=== PATIENT | female | born 1990 | race Caucasian/White ===

== ENCOUNTER 2024-10-18 00:02 | Day surgery (SDC) | payer OTHER, SELFPAY ==
--- NOTE | 2024-10-12 09:15 | PC.NURSE ---
Report to the Outpatient Waiting Room, entrance under the green pavilion located off [facility], at time _0900AM on date _10/18/24 . Planned Procedure Time: _1100AM .? Time changes happen often and if your time is changed the preop area will call you the afternoon before. - You and your visitor will be asked to self-screen and do not enter if you have any COVID symptoms. Please call surgeon if you need to reschedule. - A mask is optional within the hospital at this time. Patients may have clear liquids (water, carbonated beverages, clear teas, apple juice) until 3 hours prior to surgery with a maximum of 20 ounces. - No food from midnight until time of surgery and no smoking, or chewing tobacco (or any form of nicotine). No chewing gum, candy or mints. Take only the following medications with a SIP of water on the morning of surgery: _BUPROPRION, _ARIPIPRAZOLE DO NOT STOP ANY OF YOUR OTHER PRESCRIPTION MEDICATIONS PRIOR TO SURGERY EXCEPT THE FOLLOWING Hold all vitamins and supplements for 3 days per anesthesiologist. Medications to discontinue per physician FOLIC ACID Date to take last dose___10/15/24 Please no make-up, nail kazakh, hairspray, perfume, deodorant, or body powder the day of surgery.? No jewelry (including any body piercings) or valuables the day of surgery, leave them at home.? Please take a shower or bath the night before, or the morning of, surgery with an antibacterial soap.? Wear comfortable, loose fitting clothing.? - Jewelry must be removed prior to entering the operating room.? Rings and piercings that are not removed may be cut off. - The hospital will not accept responsibility for valuables.? - Please leave all valuables, including medications, at home the day of surgery. If you are going home after surgery, a licensed lifter driver must drive you home.? BRING AN OVERNIGHT BAG FOR ADMIT TO HOSPITAL POST OP - NO public transportation without another adult if you receive anesthesia. - We recommend that an adult stay with you for 24 hours following discharge. - We also recommend that you do not drive, make important decision, drink alcoholic beverages, or take any drugs that were not prescribed by your health care provider for at least 24 hours after your discharge time. Follow any additional instructions given to you from your surgeon. Telephone instructions given to BENEDICT and asked if any additional questions and then verbalized understanding. Patient advised to call surgeon office or pre surgery nurse liaison [phone] if any additional questions.
[2024-10-18] VITALS (13 sets, daily range): BP systolic 95–127; BP diastolic 43–73; PULSE 60–97; RESP 12–20; TEMP 36.4–37.3; O2SAT 97–100
--- OUTSIDE RECORDS SUMMARY | 2024-10-18 00:04 | XMS_ITS | Referral Summary ---
Author Organization [facility] Address [facility] [place] [address] Care Team Providers Care Corporate Tutor Name Role Phone Paula Ames Primary Care Provider + Girish Deras MD Unavailable [phone] Encounters Date Type Department Care Team Description 07/27/2024 10:45 AM CDT Office Visit [facility] Surgery [facility] [address] [place] [address] Michelle Eubanks MD S/P breast reconstruction (Primary Dx) from Last 3 Months Allergies Active Allergy Reactions Criticality Noted Date Comments Duloxetine Hcl Other (See comments) Low 09/03/2022 Side effects and trouble coming off of it. Tried and cannot take, I am not allergic Escitalopram Other (See comments) Low 09/12/[address] Tried and cannot take, I am not allergic Fluoxetine Other (See comments) Low 08/04/2021 Decre[address] Tried and cannot take, I am not allergic Phentermine Palpitations Low 12/31/2022 Medications buPROPion XL (WELLBUTRIN XL) 300 mg 24 hr tabletIndications :Anxiety with Depression Take 1 tablet (300 mg total) by mouth every morning 150 mg and 300 mg tablet to equal 450 mg. 07/18/19 23 Active levonorgestrel (MIRENA INTRAUTERINE)Feli cations: contraceptive 1 applicator by intrauterine route once Active buPROPion XL (WELLBUTRIN XL) 150 mg 24 hr tabletIndications :Anxiety with Depression Take 1 tablet (150 mg total) by mouth every morning 150 mg and 300 mg tablet to equal 450 mg. Active omeprazole 20 mg tablet,delayed release (DR/EC)Indication s:Treatment of Non-Bleeding Gastric Disorder,acid reflux Take 1 tablet (20 mg total) by mouth as needed Active cetirizine (ZyrTEC) 10 mg tabletIndications :Allergic Rhinitis Take 1 tablet (10 mg total) by mouth as needed for allergies Active melatonin 10 mg tabletIndications :sleep Take 1 tablet (10 mg total) by mouth nightly Active folic acid (FOLVITE) 1 mg tabletIndications :Folate Deficiency Take 1 tablet (1,000 mcg total) by mouth nightly Active hydrOXYzine (ATARAX) 50 mg tabletIndications :anxiety Take 1 tablet (50 mg total) by mouth every 6 (six) hours as needed for anxiety 01/06/20 24 Active valACYclovir (VALTREX) 500 mg tabletIndications :Prophylaxis, Medical,HSV Take 1 tablet (500 mg total) by mouth nightly Active ascorbic acid (VITAMIN C ORAL)Indications: supplement Take 1 tablet by mouth nightly Active cholecalciferol, vitamin D3, (VITAMIN D3 ORAL)Indications: supplement Take 1 tablet by mouth nightly Active ferrous sulfate (IRON ORAL)Indications: supplement Take 1 tablet by mouth nightly Active ARIPiprazole (ABILIFY) 30 mg tabletIndications :Depression Treatment Adjunct Take 1 tablet (30 mg total) by mouth nightly 02/02/20 24 Active Active Problems Problem Noted Date Diagnosed Date Hx of breast reconstruction 05/30/2024 Status post breast reconstruction 02/04/2024 Exposed breast implant 08/27/2023 Infection of breast tissue bricklayer paving brick, initial enc ounter 08/27/2023 Necrosis of flap 06/21/2023 BRCA gene mutation positive 04/01/2023 BRCA positive 08/11/2022 Sprain of shoulder 03/22/2013 Immunizations Immunization Administration Dates Next Due DTP 10/30/1994, 1,01/24/1990,11/12,1989 DTaP, Unspecified 10/26/2017 Hep B, Adolescent or Pediatric 08/27/1999,1998,03/05/1999 HiB 08/19/1990 Influenza, Quadrivalent, Spl it, Preservative Free, Intramuscular 03/03/2019,03/09/2018,02/24/2017,02/23,02/25/2015 Influenza, Unspecified 03/27/2021,03/04/2020, MMR 10/30/1994,08/19/1990 OPV 10/30/1994, 1,1989,08/23 OPV, Unspecified 10/30/1994, 1,1989,08/23 Td, adsorbed 09/27/2003 Tdap 10/26/2017,10/06/2016 Social History Tobacco Use Types Packs/Day Years Used Date Smoking Tobacco: Former Vaping 2 023 - 06/2023 Passive Smoke Exposure: Never Smokeless Tobacco: Never Tobacco Cessation:Counseling Given: Not Answered Alcohol Use Standard Drinks/Week Comments Not Currently 0 (1 standard drink = 0.6 oz pur e alcohol) AUDIT-C Answer Date Recorded Q1: How often do you have a drink containing alcohol? Never 05/31/2024 Q2: How many drinks containi ng alcohol do you have on a typical day when you are drinking? Patient does not drink Q3: How often do you have si x or more drinks on one occasion? Never 05/31/2024 Personal Safety Answer Date Recorded Have you ever been in or are you currently in a harmful physical or emotional relationship or is someone making you feel afraid or unsafe? 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 Gender Identity Female 07/30/2022 10:57 AM CDT Sexual Orientation Not on file Last Filed Vital Signs Vital Sign Reading Time Taken Comments Blood Pressure 114/61 06/28/2024 11:30 AM PROCESS MACHINE OPERATOR Pulse 75 06/28/2024 11:30 AM PROCESS MACHINE OPERATOR Temperature 36.9 C (98.4 F) 06/28/2024 11:30 AM PROCESS MACHINE OPERATOR Respiratory Rate 10 06/28/2024 11:30 AM PROCESS MACHINE OPERATOR Oxygen Saturation 96% 06/28/2024 11:30 AM PROCESS MACHINE OPERATOR Inhaled Oxygen Concentration - - Weight 115.7 kg (255 lb) 06/28/2024 7:16 AM PROCESS MACHINE OPERATOR Height 167.6 cm (5' 5.98) 06/28/2024 7:16 AM CS T Body Mass Index 41.18 06/28/2024 7:16 AM PROCESS MACHINE OPERATOR Plan of Treatment Not on file Medical Devices Implanted Type Area Insole Channeler Device Identifier Shelf Expiration Date Model / Serial / Lot [place] Mesh Surgical P4hb Synthetic [place] Galaflex Lite 17cm Soft Tissue Repair [id number] - [id number] Implanted:Qty: 1 on 06/02/2023 by Michelle Eubanks MD at [facility] Breast Right: Breast [employer]ile 03/16/2024 [id number] / / [id number] Description:IMPLANT PAUSE PE RFORMED Te[employer] Inc Mesh Surg [place] 3d 21x7.5cm Soft Tissue Scaffold [facility] [facility] [employer] [id number] - [id number] Implanted:Qty: 1 on 06/02/2023 by Michelle Eubanks MD at [facility] Breast Bilateral: Breast TEPHA INC 04/08/2026 [id number] / / [id number] Rti Surgical Inc Graft Tissue Tailored Dermis Large 1mm Thick Cortiva 10.2x21.1cm [id number] - [id number] - [id number] Implanted:Qty: 1 on 06/02/2023 by Michelle Eubanks MD at [facility] Breast Right: Breast Rti [employer] Inc 09/14/2027 [id number] / [id number] / [id number] Rti [employer] Inc Graft Tissue Tailored Dermis Large 1mm Thick Cortiva 10.2x21.1cm Kgf802 - [id number] - [id number] Implanted:Qty: 1 on 06/02/2023 by Michelle Eubanks MD at [facility] Breast Left: Breast [employer] Inc 09/14/2027 [id number] / [id number] / [id number] Chula Randy Mesh Surgical P4hb Synthetic [place] Galaflex Lite 17cm Soft Tissue Repair [id number] - [id number] Implanted:Qty: 1 on 06/02/2023 by Michelle Eubanks MD at [facility] Breast Left: Breast [employer] 03/16/2024 [id number] / / [id number] Description:IMPLANT PAUSE PE RFORMED Iud Uterus [employer] Inc Graft Tissue Perf Cortiva 27s49cv [id number] - [id number] Implanted:Qty: 1 on 02/22/2024 at [facility] Left: Breast Rti [employer] Inc 04/19/2025 [id number] / [id number] / [id number] Sientra Inc Implant Breast Round Moderate Profile Smooth Opus Luxe 650cc Gel [id number] - [id number] Implanted:Qty: 1 on 06/28/2024 at [facility] Left: Breast Sientra Inc 12/02/2025 [id number] P / [id number] / Sient[employer] Inc Implant Breast Round Moderate Profile Smooth Opus Luxe 650cc Gel [id number] - [id number] Implanted:Qty: 1 on 06/28/2024 at [facility] Right: Breast S[employer] Inc 08/25/2024 [id number] P / [id number] / Explanted Type Area Insole Channeler Device Identifier Shelf Expiration Date Model / Serial / Lot Sientra Inc Implant Breast Round Moderate Profile Smooth Opus Luxe 650cc Gel [id number] - [id number] - [id number] Implanted:Qty : 1 on 06/02/2023 by Michelle Eubanks MD at [facility] Explanted:Qty : 1 on 08/28/2023 by Michelle Eubanks MD at [facility] Breast Left: Breast S[employer] Inc [id number] 10/21/2025 61381-596 MP / [id number] / Description:IMPLANT PAUSE PE RFORMED Discarded to waste [employer] Implant Breast Round Moderate Profile Smooth Opus Luxe 650cc Gel 97243-195mm - [id number] - [id number] Implanted:Qty : 1 on 06/02/2023 by Michelle Eubanks MD at [facility] Explanted:Qty : 1 on 06/28/2024 by Michelle Eubanks MD at [facility] Breast Right: Breast Sient[employer] Inc [id number] 09/03/2023 [id number] / [id number] / Description:IMPLANT PAUSE PE RFORMED [employer] Implant Mammary Josue Te Smooth 616z-[id number]-73-[id number] With Fourte 913a-[id number]-40-[id number] - [id number] Implanted:Qty : 1 on 02/22/2024 at [facility] Explanted:Qty : 1 on 06/28/2024 by Michelle Eubanks MD at [facility] Left: Breast [employer] 2028 [id number] / [id number] / Procedures Procedure Name Priority Date/Time Associated Diagnosis Comments DIAGNOSTIC MAMMOGRAM BILATERAL W NIMA Schedule Routine, Read Routine (OP Routine) 08/11/2022 10:19 AM CDT BRCA gene mutation positive from Last 3 Months or Most Recently Relevant to Health Maintenance Results * Diagnostic Mammogram Bilateral W Nima (08/11/2022 10:19 AM CDT) Anatomical Region Laterality Modality Breast Bilateral Mammography 08/11/2022 10:3 3 AM CDT Impressions 08/11/2022 1:19 PM CDT 1. Effacement of the focal asymmetry in the lower inner left breast on spot compression views today. Finding is stable in appearance since 2021 and is consistent with overlapping fibroglandular tissue. 2. Effacement of the asymmetry seen on the lateral views in the upper right breast on spot compression views today. Finding is stable in appearance since 2021 and is consistent with overlapping fibroglandular tissue. OVERALL FINAL ASSESSMENT: BI-RADS Category 1: Negative. RECOMMENDATION: Continued clinical follow-up is recommended. Unless earlier screening is clinically indicated, recommend annual screening mammography beginning at 40 years of age. Dictated by: Noemí Miller M.D. The radiology attending physician has personally reviewed this study, and had reviewed and/or edited this written report and agrees with it. Electronically signed by: Mireya Masters M.D. Narrative 08/11/2022 1:19 PM CDT EXAMINATION: BILATERAL DIGITAL DIAGNOSTIC MAMMOGRAM INCLUDING CAD AND BILATERAL DIGITAL BREAST TOMOSYNTHESIS HISTORY: 32-year-old woman presents for further evaluation of focal asymmetry in the left breast and asymmetry in the right breast seen on the MLO view. COMPARISON: 06/16/2022, 08/27/2021 TECHNIQUE: Full field digital mammographic views of BOTH breasts were performed, including computer aided detection (CAD) and BILATERAL digital breast tomosynthesis (DBT). BREAST PARENCHYMAL COMPOSITION: There are scattered areas of fibroglandular density. MAMMOGRAM FINDINGS: Left breast: The focal asymmetry in the lower inner left breast partially effaces on spot compression views today and is stable in appearance since 2021. Right breast: The asymmetry seen on the lateral views in the upper right breast partially effaces on spot compression views today and is stable in appearance since 2021. Procedure Note Mireya Masters MD - 08/11/2022 EXAMINATION: BILATERAL DIGITAL DIAGNOSTIC MAMMOGRAM INCLUDING CAD AND BILATERAL DIGITAL BREAST TOMOSYNTHESIS HISTORY: 32-year-old woman presents for further evaluation of focal asymmetry in the left breast and asymmetry in the right breast seen on the MLO view. COMPARISON: 06/16/2022, 08/27/2021 TECHNIQUE: Full field digital mammographic views of BOTH breasts were performed, including computer aided detection (CAD) and BILATERAL digital breast tomosynthesis (DBT). BREAST PARENCHYMAL COMPOSITION: There are scattered areas of fibroglandular density. MAMMOGRAM FINDINGS: Left breast: The focal asymmetry in the lower inner left breast partially effaces on spot compression views today and is stable in appearance since 2021. Right breast: The asymmetry seen on the lateral views in the upper right breast partially effaces on spot compression views today and is stable in appearance since 2021. IMPRESSION: 1. Effacement of the focal asymmetry in the lower inner left breast on spot compression views today. Finding is stable in appearance since 2021 and is consistent with overlapping fibroglandular tissue. 2. Effacement of the asymmetry seen on the lateral views in the upper right breast on spot compression views today. Finding is stable in appearance since 2021 and is consistent with overlapping fibroglandular tissue. OVERALL FINAL ASSESSMENT: BI-RADS Category 1: Negative. RECOMMENDATION: Continued clinical follow-up is recommended. Unless earlier screening is clinically indicated, recommend annual screening mammography beginning at 40 years of age. Dictated by: Noemí Miller M.D. The radiology attending physician has personally reviewed this study, and had reviewed and/or edited this written report and agrees with it. Electronically signed by: Mireya Masters M.D. Nirmala Lino MD IMG MAMMO PROCEDURES Fi nal Result from Last 3 Months or Most Recently Relevant to Health Maintenance Insurance [facility] H[facility]/PPO Address: [place] [address] [facility] HMO/PPO Address: [address] Fast Orientation OOS Advance Directives For more information, please contact: [phone] * Full Code (Latest Code Status on File) Date Activated Date Inactivated Comments 08/27/2023 5:44 PM 08/29/2023 12:54 AM Care Teams Corporate Tutor Relationship Specialty Start Date End Date Paula Ames PA [address] [place] [address] PCP - General Physician Swimming Pool 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
--- OUTSIDE RECORDS SUMMARY | 2024-10-18 00:04 | XMS_ITS | Clinical Summary ---
Author Organization [facility] Address [address] [place] [address] Care Team Providers Care Welfare Adviser Name Role Phone Unavailable Primary Care Provider Unavailabl e Source Comments [facility],non-owned Affiliates and Associated Physician Practices is amultiple site organization consisting of ambulatory clinics and hospital sitesin [place], [place], [place] and [place]. This disclosure is being madepursuant to the Care Everywhere program and may not contain all information available regarding this patient. 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 Gender Identity Not on file Sexual Orientation Not on file Plan of Treatment Health Maintenance Due Date Last Done Comments HIV SCREENING 2004 HEPATITIS C SCREENING 05/17/2007 DTAP/TDAP/TD VACCINES (1 - Tdap) 2008 HEPATITIS B VACCINE (1 of 3 - 19+ 3-dose series) 2008 COVID-19 VACCINE (2023-2 5 season) 2024 DEPRESSION SCREENING 05/17/2024 INFLUENZA VACCINE (Season Ended) 2025 ZOSTER VACCINE (1 of 2) 2039 HIB VACCINE Aged Out No longer eligi ble based on patient's age to complete this topic HPV VACCINE Aged Out No longer eligi ble based on patient's age to complete this topic MENINGOCOCCAL (Group B) VACC INE SHARED DECISION-MAKING Aged Out No longer eligibl e based on patient's age to complete this topic MENINGOCOCCAL GROUPS A/C/Y/W VACCINE Aged Out No longer eligible b ased on patient's age to complete this topic PNEUMOCOCCAL VACCINE Aged Out No long er eligible based on patient's age to complete this topic Insurance [employer]
--- OUTSIDE RECORDS SUMMARY | 2024-10-18 00:04 | XMS_ITS | Clinical Summary ---
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 08/27/2023 Necrosis of flap 06/21/2023 BRCA gene mutation positive 04/01/2023 BRCA positive 08/11/2022 Sprain of shoulder 03/22/2013 Encounters Date Type Department Care Team Description 07/27/2024 10:45 AM CDT Office Visit [facility] Surgery [facility] [address] [place] [address] Michelle Eubanks MD S/P breast reconstruction (Primary Dx) from Last 3 Months Immunizations Immunization Administration Dates Next Due DTP 10/30/1994, 1,01/24/1990,11/12,1989 DTaP, Unspecified 10/26/2017 Hep B, Adolescent or Pediatric 08/27/1999,1998,03/05/1999 HiB 08/19/1990 Influenza, Quadrivalent, Spl it, Preservative Free, Intramuscular 03/03/2019,03/09/2018,02/24/2017,02/23,02/25/2015 Influenza, Unspecified 03/27/2021,03/04/2020, MMR 10/30/1994,08/19/1990 OPV 10/30/1994, 1,1989,08/23 OPV, Unspecified 10/30/1994, 1,1989,08/23 Td, adsorbed 09/27/2003 Tdap 10/26/2017,10/06/2016 Surgical History Surgery Date Site/Laterality Comments DILATION AND CURETTAGE OF UTERUS 05/17/2015 - 05/16/2016 N/A x2 KIDNEY STONE SURGERY 03/17/2019 - 04/15/2019 HAND SURGERY Right x3, 2012, 2013, and 2021 MASTOPEXY 01/15/2023 - 02/13/2023 Bilateral MASTECTOMY 06/02/2023 Bilateral breast reconstruction with implants BREAST IMPLANT REMOVAL 08/28/2023 Left BREAST SURGERY 07/02/2023 Bilateral REVISION SCAR - BREAST- EXCISION AND CLOSURE OF BILATERAL MASTECTOMY FLAP NECROSIS INSERTION OF BREAST TISSUE DIRECTOR OF PARTNERSHIPS 02/22/2024 Left Medical History Medical History Date Comments Depression Anxiety Wears glasses PONV (postoperative nausea and vomiting) scoplamine patch and IV meds have been effective in the past Sleep apnea No CPAP Motion sickness GERD (gastroesophageal reflux disease) Family History Medical History Relation Name Comments Anesthesia problems Mother PONV Arthritis Mother Family history of arthritis - (Added by TW Conv) Breast cancer Mother BRCA 1 mutatio n Breast cancer Mother's Sister Relation Name Status Comments Mother Mother's Sister Social History Tobacco Use Types Packs/Day Years [...] on file Legal Sex Female 10:34 AM 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 Gender Identity Female 07/30/2022 10:57 AM CDT Sexual Orientation Not on file Obstetrics History Last Filed Vital Signs Vital Sign Reading Time Taken Comments Blood Pressure 114/61 06/28/2024 11:30 AM 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 Pulse 75 06/28/2024 11:30 AM 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 Temperature 36.9 C (98.4 F) 06/28/2024 11:30 AM 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 Respiratory Rate 10 06/28/2024 11:30 AM 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 Oxygen Saturation 96% 06/28/2024 11:30 AM 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 Inhaled Oxygen Concentration - - Weight 115.7 kg (255 lb) 06/28/2024 7:16 AM 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 Height 167.6 cm (5' 5.98) 06/28/2024 7:16 AM CS T Body Mass Index 41.18 06/28/2024 7:16 AM 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 Plan of Treatment Health Maintenance Due Date Last Done Comments Cervical Cancer Screening 1989 Depression Screening 1989 Hepatitis C Screening 1989 Varicella Vaccines (1 of 2 - 13+ 2-dose series) 2002 Regular Well Visit/Exam 18-64 2007 Breast Cancer Screening-Mammogram 08/12/2023 08/11/2022 Covid-19 Vaccine ( season) 2024 02/26/2021, 06/24/2020, 06/03/2020 Influenza Vaccine (Season Ended) 2025 03/27/2021, 03/04/2020, 03/03/2019, Additional history exists DTaP/Tdap/Td Vaccine (9 - Td or Tdap) 10/27/2027 10/26/2017, 10/26/2017, 10/06/2016, Additional history exists Hepatitis B Screening Completed 08/27/1999 , 04/02/1999, 03/05/1999 HPV Vaccines Aged Out No longer eligi ble based on patient's age to complete this topic Pneumococcal vaccine <65 Aged Out No longer eligible based on patient's age to complete this topic Medical Devices Implanted Type Area Manufacturers Agent Device Identifier Shelf Expiration Date Model / Serial / Lot Chula Elmore Mesh Surgical P4hb Synthetic [place] Galaflex Lite 17cm Soft Tissue Repair [id number] - [id number] Implanted:Qty: 1 on 06/02/2023 by Michelle Eubanks MD at [facility] Breast Right: Breast Chula Randy 03/16/2024 [id number] / / [id number] Description:IMPLANT PAUSE PE RFORMED Tepha Inc Mesh Surg [place] 3d 21x7.5cm Soft Tissue Scaffold [place] [id number] - [id number] Implanted:Qty: 1 on 06/02/2023 by Michelle Eubanks MD at [facility] Breast Bilateral: Breast TEPHA INC 04/08/2026 [id number] / / [id number] Rti Surgical Inc Graft Tissue Tailored Dermis Large 1mm Thick Cortiva 10.2x21.1cm [id number] - [id number] - [id number] Implanted:Qty: 1 on 06/02/2023 by Michelle Eubanks MD at [facility] Breast Right: Breast Rti Surgical Inc 09/14/2027 [id number] / [id number] / [id number] Rti Surgical Inc Graft Tissue Tailored Dermis Large 1mm Thick Cortiva 10.2x21.1cm [id number] - [id number] - [id number] Implanted:Qty: 1 on 06/02/2023 by Michelle Eubanks MD at [facility] Breast Left: Breast Rti Surgical Inc 09/14/2027 [id number] / [id number] / [id number] Chula Elmore Mesh Surgical P4hb Synthetic [place] Galaflex Lite 17cm Soft Tissue Repair [id number] - [id number] Implanted:Qty: 1 on 06/02/2023 by Michelle Eubanks MD at [facility] Breast Left: Breast Chula Randy 03/16/2024 [id number] / / [id number] Description:IMPLANT PAUSE PE RFORMED Iud Uterus Rti Surgical Inc Graft Tissue Perf Cortiva [id number] - [id number] Implanted:Qty: 1 on 02/22/2024 at [facility] Left: Breast Rti Surgical Inc 04/19/2025 [id number] / [id number] / [id number] Sientra Inc Implant Breast Round Moderate Profile Smooth Opus Luxe 650cc Gel [id number] - [id number] Implanted:Qty: 1 on 06/28/2024 at [facility] Left: Breast Sientra Inc 12/02/2025 [id number] P / [id number] / Sientra Inc Implant Breast Round Moderate Profile Smooth Opus Luxe 650cc Gel [id number] - [id number] Implanted:Qty: 1 on 06/28/2024 at [facility] Right: Breast Sientra Inc 08/25/2024 33596-533M P / [id number] / Explanted Type Area Manufacturers Agent Device Identifier Shelf Expiration Date Model / Serial / Lot Sientra Inc Implant Breast Round Moderate Profile Smooth Opus Luxe 650cc Gel [id number] - [id number] - [id number] Implanted:Qty : 1 on 06/02/2023 by Michelle Eubanks MD at [facility] Explanted:Qty : 1 on 08/28/2023 by Michelle Eubanks MD at [facility] Breast Left: Breast Sientra Inc [id number] 10/21/2025 18491-992 MP / [id number] / Description:IMPLANT PAUSE PE RFORMED Discarded to waste Sientra Inc Implant Breast Round Moderate Profile Smooth Opus Luxe 650cc Gel 97290-283nm - [id number] - [id number] Implanted:Qty : 1 on 06/02/2023 by Michelle Eubanks MD at [facility] Explanted:Qty : 1 on 06/28/2024 by Michelle Eubanks MD at [facility] Breast Right: Breast Sientra Inc [id number] 09/03/2023 40403-196 MP / [id number] / Description:IMPLANT PAUSE PE RFORMED Allergan Wakoopa Inc Implant Mammary Josue Te Smooth 270d-Rh-40-T With Fourte 034f-Bu-38-[id number] - [id number] Implanted:Qty : 1 on 02/22/2024 at [facility] Explanted:Qty : 1 on 06/28/2024 by Michelle Eubanks MD at [facility] Left: Breast Allergan [place] Inc 2028 [id number] 4-[id number] / [id number] / Procedures Procedure Name Priority Date/Time Associated [...] Most Recently Relevant to Health Maintenance Insurance [facility] Address: [place] [address] [facility] Address: [place] [address] [employer] OOS Advance Directives For more information, please contact: [phone] * Full Code (Latest Code Status on File) Date Activated Date Inactivated Comments 08/27/2023 5:44 PM 08/29/2023 12:54 AM Care Teams Wire Brusher Relationship Specialty Start Date End Date Paula Ames PA [address] [place] [address] PCP - General Physician Operations And Maintenance Technician 06/17/22 Girish Deras MD [address] [address] Referring Physician Obstetrics and Gynecology 06/15/23
--- NOTE | 2024-10-18 08:29 | PM.IMHP ---
H&P: HPI History of Present Illness Date/Time: 10/18/24 08:29 Chief Complaint: BRCA mutation Narrative: 34 y/o with a BRCA1 gene mutation, here for hysterectomy and BSO for cancer risk reduction. She also has leakage of urine with coughing, sneezing, laughing and lifting. She empties her bladder well and has no nocturia or overactive bladder symptoms. She would like to have a suburethral sling at the time of hysterectomy. Review of Systems Review of Systems: All systems reviewed & are unremarkable except as noted in HPI and below PMFSH Past Medical History Medical History (Updated 10/18/24 @ 08:33 by Girish Deras MD) BRCA1 gene mutation positive in female Surgical History Surgical History (Updated 10/18/24 @ 08:33 by Girish Deras MD) History of prophylactic mastectomy of both breasts Social History Social History Tobacco type: e-cigarettes/vaping Additional smoking assessment comments: VAPING FOR ~ 6MO-NO PRIOR TOBABBO USE Alcohol intake: never Substance use: never Substance use type: marijuana Last use: 10/11/24 Living arrangements: with family Spiritual care concerns: No Meds Home Medications and Allergies Home Medications ?Medication ?Instructions ?Recorded ?Confirmed ?Type aripiprazole 30 mg tablet 30 mg PO DAILY 10/12/24 10/12/24 History bupropion HCl 150 mg 24 hr tablet, 150 mg PO DAILY 10/12/24 10/12/24 History extended release bupropion HCl 300 mg 24 hr tablet, 300 mg PO DAILY 10/12/24 10/12/24 History extended release folic acid 1 mg tablet 1 mg PO DAILY 10/12/24 10/12/24 History valacyclovir 500 mg tablet 500 mg PO DAILY 10/12/24 10/12/24 History Allergies Allergy/AdvReac Type Severity Reaction Status Date / Time No Known Allergies Allergy Verified 10/12/24 08:54 Exam Const: Orientation/consciousness: patient oriented x3 Other: Well-developed, well-nourished female in no acute distress. Neck: Thyroid: thyroid normal Lymphatic: no lymphadenopathy noted (in neck, axilla or inguinal nodes) Resp: Effort & Inspection: normal respiratory effort Auscultation: clear to auscultation bilaterally Cardio: Rate: regular rate Rhythm: regular rhythm Heart sounds: S1 normal heart sound present and S2 normal heart sound present GI: Other: ABD: Soft, nontender, nondistended. No guarding or rebound tenderness. No hepatosplenomegaly. : General: Yes no CVA tenderness Other: External genitalia: normal female hair distribution, without lesion. Urethral meatus: no lesion, non prolapsed. Bladder: no mass, nontender Vagina: well-estrogenized, without lesion or discharge. No cystocele or rectocele. Cervix: no lesion or discharge. IUD strings noted. Uterus: small, anteverted, freely mobile, nontender Adnexa: no mass or tenderness. Anus/perineum: no lesions, nontender Back/Spine/Pelvis: Back: no CVA tenderness Skin: General skin exam: normal color and no rashes or lesions noted Neuro: General: patient oriented x3 Extrem: Other: Extremities: nontender with no edema Psych: Mental Status: mental status grossly normal Affect: normal affect Assessment and Plan Assessment and plan (1) BRCA1 gene mutation positive in female: Code(s): Z15.01 - Genetic susceptibility to malignant neoplasm of breast; Z15.02 - Genetic susceptibility to malignant neoplasm of ovary; Z15.09 - Genetic susceptibility to other malignant neoplasm Status: Acute Assessment and Plan: A: BRCA1 mutation, genuine stress urinary incontinence. P: I have offered her robotic assisted total vaginal hysterectomy with bilateral salpingo-oophorectomies, tension-free vaginal taping with cystoscopy. She understands risks of surgery to include risks of anesthesia, risks of pain, infection, bleeding, blood products, thromboembolic phenomena and damage to adjacent structures such as bowel, bladder, ureters, blood vessels and nerves. She understands hysterectomy will render her permanently sterile. She understands BSO may result in menopausal symptoms. She understands TVT may be associated with incomplete cure of incontinence, as well as with possible worsening of overactive bladder symptoms or urinary retention. She understands all these risks and elects to proceed with surgery. (2) STU (stress urinary incontinence, female): Code(s): N39.3 - Stress incontinence (female) (male) Status: Acute
[2024-10-18] MEDS: LACTATED RINGERS 1,000 ML 30 ML IV CONT ×2 (09:00→13:53)
[2024-10-18] MEDS: ACETAMINOPHEN 500 MG TABLET 1000 MG PO ×2 (09:49→18:29)
[2024-10-18] MEDS: KETOROLAC 15 MG/ML VIAL (*BKC) IV PUSH (09:49)
--- NOTE | 2024-10-18 10:35 | WPDANESEPPF ---
Anes - Initial Pre Proc Eval Procedure: Operation Date: 10/18/24 11:00 Proposed Procedures p Robotic Assisted Total Vaginal Hysterectomy with Bilateral Salpingo-oophorectomy, - Girish Deras MD s Cystoscopy for PHARMACIST HELPER Procedure, - Girish Deras MD s Tension Free Vaginal Taping - Girish Deras MD Date/Time: 10/18/24 10:35 Surgeon: Girish Deras MD Pre Op Diagnosis: BRACA1 Cancer Risk, Stress Incontinence Patient Data Age: 34 Gender: F Height: 1.68 m Weight: 120.4 kg Allergies Allergy/AdvReac Type Severity Reaction Status Date / Time No Known Allergies Allergy Verified 10/12/24 08:54 Home Medications ?Medication ?Instructions ?Recorded ?Confirmed ?Type aripiprazole 30 mg tablet 30 mg PO DAILY 10/12/24 10/12/24 History bupropion HCl 150 mg 24 hr tablet, 150 mg PO DAILY 10/12/24 10/12/24 History extended release bupropion HCl 300 mg 24 hr tablet, 300 mg PO DAILY 10/12/24 10/12/24 History extended release folic acid 1 mg tablet 1 mg PO DAILY 10/12/24 10/12/24 History valacyclovir 500 mg tablet 500 mg PO DAILY 10/12/24 10/12/24 History Patient hx anesthesia problems: none Family hx anesthesia problems: none Results Review: All pre-operative results and documents have been reviewed as part of the pre-operative evaluation. [facility] Past Medical History Medical History (Updated 10/18/24 @ 10:35 by Fernando Holly MD) Morbid obesity BRCA1 gene mutation positive in female Surgical History Surgical History History of prophylactic mastectomy of both breasts Social History Social History Tobacco type: e-cigarettes/vaping Additional smoking assessment comments: VAPING FOR ~ 6MO-NO PRIOR TOBABBO USE Alcohol intake: never Substance use: never Substance use type: marijuana Last use: 10/11/24 Living arrangements: with family Spiritual care concerns: No Anes - Eval Final PreProcedure Day of Procedure 10/18/24 10:35 Patient weight: morbidly obese Heart: regular rate and rhythm Lungs: clear to auscultation Airway: Mallampati scale class II Neurological: alert and oriented Last oral intake: >/= 8 hours ASA classification: III Emergent: no Anesthetic plan: proceed Anesthesia type and monitoring: general ETT and standard monitoring Results Review: All pre-operative results and documents have been reviewed as part of the pre-operative evaluation. Informed Consent: The patient's anesthetic plan and its attendant risks and benefits were discussed with the patient/family/POA. Questions were solicited and answers provided to the satisfaction of the patient/family/POA.
[2024-10-18] MEDS: SCOPOLAMINE 1 MG PATCH 1 PATCH TRANSDERM (10:56)
[2024-10-18 10:57] LABS: BEDSIDEPREGUCG Negative (Negative)
--- NOTE | 2024-10-18 11:42 | WPDHPUPDATE1 ---
History and Physical Update Update Date/Time: 10/18/24 11:42 History and Physical has been reviewed, including an updated exam of the patient. There are NO changes in the patient's condition. Risks, benefits, and alternatives have been discussed and questions answered. Patient agrees to proceed with procedure.
[2024-10-18] MEDS: ceFAZolin 3 GM/D5W 100 ML 100 ML IVPB (11:45)
--- NOTE | 2024-10-18 13:00 | S_PTH ---
PATIENT: Negrita Ferrell LOC: [facility] U#:[id number] AGE/SX: 34/F ROOM: RE10/18/[address]: Girish Deras MD : 1990 BED: DIS: 10/19/2024 SPEC #: [id number] RECD: 10/18/24 14:07 STATUS: TYRONE REQ #: [id number] JAIR: 10/18/24 13:[address]: Girish Deras DEPT: [facility] Surgical RECD BY: Mary Beth Corea ENTERED: 10/18/24 14:07 SP TYPE: Surgical OTHR DR: Paula Ames, PA Tissues: A - Uterus Procedures: Hematoxylin and Eosin Stain Gross and Microscopic Level 5
--- NOTE | 2024-10-18 13:54 | P.OP_ITS ---
Procedure Note - Detailed Date of Procedure 10/18/24 Pre-op Diagnosis BRCA-1 Carrier Stress Urinary Incontinence Post-op Diagnosis Same Procedure Performed Robotic assisted total vaginal hysterectomy with bilateral salpingo- oophorectomy. Tension free vaginal taping with cystoscopy Surgeon Girish Deras MD Anesthesia General Findings Normal-appearing uterus, tubes and ovaries. The bladder was intact after placement of the TVT needles. Bilateral ureteral ejaculation visualized at the conclusion of the case. Description of Procedure The patient was taken to the operating room where general endotracheal anesthesia was administered. She was prepared and draped in the usual sterile fashion in the dorsal lithotomy position. The bladder was drained with Ruiz catheter. The cervix was visualized and the anterior lip was grasped using a single-tooth tenaculum. The cervix was gently dilated using Hegar dilators. The TENNILLE 2 uterine manipulator was then placed and the tenaculum was removed. Gloves were changed and attention was turned to the abdomen. A supraumbilical skin incision was made with the scalpel. The Veress needle was advanced and pneumoperitoneum was administered using carbon dioxide gas. The bladeless trocar was then advanced. Intraperitoneal placement was confirmed using the laparoscope. Lateral ports and an assistant director of admissions port were all placed using bladeless trocars under direct laparoscopic visualization. She was placed in Tr endelenburg position and the patient cart was docked. I assumed the console. The ureters were visualized bilaterally. The round ligament on the right was divided. The infundibulopelvic ligament was divided. The broad ligament was divided, skeletonizing the uterine artery on the right. The bladder was reflected away. The left side was similarly dissected. Colpotomy was performed circumferentially. The specimen was removed and passed off to be sent to pathology. The vaginal cuff was reapproximated using 0 Vicryl in interrupted [id number] fashion. The pelvis was irrigated copiously using warmed normal saline. Rigorous hemostasis was assured. Surigcel powder was applied to the vaginal cuff. The pedicles were inspected once again. The ports were then withdrawn and the gas was allowed to escape. The skin incisions were reapproximated using 4 0 Monocryl in interrupted subcuticular fashion. Dermaflex was applied externally. Attention was then redirected to the vagina. The vaginal epithelium underlying the midurethra was elevated and incised sharply. Lateral dissection was undertaken. The bladder was reflected to the patient's left using the bladder guide, and the right-sided TVT needle was passed. The bladder was reflected to the right, and and the left TVT needle passed. The catheter was withdrawn and cystoscopy undertaken using sterile saline. The bladder was intact, and bilateral ureteral ejaculation was seen. The ruiz was replaced. The TVT mesh was advanced into place using a Fields scissors for spacing. The vaginal incision was reapproximated with a single figure of eight suture of 2-0 Chromic. The TVT exit sites were closed with Dermaflex. Hemostasis was excellent. Sponge, lap, needle and instrument counts were correct. The patient was awakened and taken to the recovery room in stable condition. I was present and scrubbed through the entire procedure. Implants TVT Estimated Blood Loss 50 Drains Yes (Ruiz) Packing No Pathology Yes (Uterus, cervix, bilateral tubes and ovaries.) Complications None Condition Stable Disposition PACU
--- NOTE | 2024-10-18 14:00 | P.DS_ITS ---
DS: Admitting Diagnosis Discharge Date 10/19/24 Admitting Diagnosis BRCA-1 carrier Stress urinary incontinence DS: Discharge Diagnosis Discharge Diagnosis (1) BRCA1 gene mutation positive in female: Code(s): Z15.01 - Genetic susceptibility to malignant neoplasm of breast; Z15.02 - Genetic susceptibility to malignant neoplasm of ovary; Z15.09 - Genetic susceptibility to other malignant neoplasm Status: Acute (2) STU (stress urinary incontinence, female): Code(s): N39.3 - Stress incontinence (female) (male) Status: Acute DS: Summary Hospital Course Hospital Course: Admitted for scheduled surgery. Underwent robotic assisted TVHBSO with TVT/cystoscopy. Did well postop and was able to go home on POD1. Time Spent with Patient Time attestation: Total time spent providing and/or coordinating discharge services: DS: Data Data Completed and Pending Pending studies at discharge: Pending at discharge 10/18/24 13:00 Surgical [PTH] Routine Labs on day of discharge: Labs from last 24 hours 10/18/24 09:30 POC Urine HCG, Qual Negative Discharge Plan Discharge Patient Disposition: Home Discharge Instructions: Nothing in vagina for 6 weeks. Call or return if temperature above 100.4? F, increased abdominal pain, increased vaginal bleeding or any new problems. Patient Instructions: Laparoscopic Hysterectomy (DC) Patient Language: Mauritanian Stand Alone Forms: General Discharge Instructions Follow-up/Referrals: Girish Deras MD [Physician] - 2 Weeks Discharge Medications: New hydrocodone-acetaminophen 5-325 mg tablet 1 - 2 tablet PO Q6H PRN (Reason: pain) Qty: 30 0RF estradiol [Vivelle-Dot] 0.1 mg/24 hr patch semiweekly 1 patch transdermal 2XW Qty: 8 4RF Rx Instructions: apply 1 patch for 3 days alternating with 1 patch for 4 days each week for 3 wks per 4-wk cycle No Action valacyclovir 500 mg tablet 500 mg PO DAILY folic acid 1 mg tablet 1 mg PO DAILY aripiprazole 30 mg tablet 30 mg PO DAILY bupropion HCl 300 mg tablet extended release 24 hr 300 mg PO DAILY bupropion HCl 150 mg tablet extended release 24 hr 150 mg PO DAILY
[2024-10-18] MEDS: fentaNYL CITRATE INJ (*CRX) 100 MCG/2 ML VIAL 25 MCG IV PUSH ×4 (14:12→14:47)
--- NOTE | 2024-10-18 16:02 | PC.NURSE ---
This patient, Negrita Ferrell, was received from PACU on 10/18/24 at 1602. Patient/family oriented to unit policies, routines, room.
[2024-10-18] MEDS: DEXTROSE 5%/0.45% SOD CHL 1,000 ML 125 ML IV CONT ×2 (16:34→22:02)
[2024-10-18] MEDS: DOCUSATE SODIUM 100 MG CAPSULE PO (16:38)
[2024-10-18] MEDS: SIMETHICONE 80 MG TAB.CHEW PO (16:39)
[2024-10-18] MEDS: oxyCODONE HCL (*CRX) 5 MG TAB IR PO (16:39)
[2024-10-18] MEDS: ESTRADIOL 7 DAY 0.05 MG PATCH TRANSDERM (16:40)
[2024-10-18] MEDS: KETOROLAC 30 MG/ML VIAL (*BKC) IV PUSH (18:27)
[2024-10-18] MEDS: ONDANSETRON INJ 4 MG/2 ML VIAL IV PUSH (18:28)
[2024-10-18] MEDS: ENOXAPARIN 40 MG/0.4 ML SYRINGE SUB-Q (18:28)
[2024-10-18] MEDS: oxyCODONE HCL (*CRX) 5 MG TAB IR 10 MG PO (20:43)
[2024-10-19 00:47] VITALS: BP 92/55
[2024-10-19] MEDS: ACETAMINOPHEN 500 MG TABLET 1000 MG PO ×2 (01:08→07:04)
[2024-10-19] MEDS: KETOROLAC 30 MG/ML VIAL (*BKC) IV PUSH ×2 (01:09→07:05)
[2024-10-19 04:23] VITALS: BP 104/51; PULSE 54; RESP 17; TEMP 36.5; O2SAT 98
[2024-10-19] MEDS: oxyCODONE HCL (*CRX) 5 MG TAB IR PO ×2 (04:29→11:41)
[2024-10-19 04:34] LABS: Basophils Percent Auto 0.1 % (0.2-1.2); Hematocrit 35.2 % (37.0-47.0); Hemoglobin 11.6 g/dL (12.0-15.0); Immature Granulocyte Absolute 0.05 K/mm3 (0.00-0.031); Immature Granulocyte Percent A 0.3 % (0-0.5); Lymphocytes Percent Auto 9.3 % (18.3-44.2); Mean Corpuscular Hemoglobin 30.5 pg (26-34); Mean Corpuscular Volume 92.6 fl (80-100); Monocytes Absolute Auto 1.1 K/mm3 (0.1-0.6); Monocytes Percent Auto 6.5 % (2.6-8.5); Neutrophils Absolute Auto 13.6 K/mm3 (1.3-6.7); Neutrophils Percent Auto 83.8 % (45.5-73.1); Platelet Count Result 257 k/mm3 (150-375); Red Cell Distribution Width 12.3 % (11.5-14.5); White Blood Count 16.2 K/mm3 (4.5-10.0)
[2024-10-19] MEDS: SIMETHICONE 80 MG TAB.CHEW PO ×2 (07:04→11:47)
[2024-10-19] MEDS: DOCUSATE SODIUM 100 MG CAPSULE PO (07:04)
[2024-10-19 07:55] VITALS: BP 94/47; PULSE 59; RESP 18; TEMP 37.3; O2SAT 100
--- NOTE | 2024-10-19 10:26 | WPDANESPN ---
Anes - Prog Note Post-Op Date/Time: 10/19/24 10:26 Cardiovascular status: normal Respiratory status: normal Airway patency: baseline Mental status: baseline Post-Op hydration status: normal Vital Signs: Last Vital Signs Temp 99.1 F 10/19/24 07:55 Pulse 59 L 10/19/24 07:55 Resp 18 10/19/24 07:55 BP 94/47 L 10/19/24 07:55 Pulse Ox 100 10/19/24 07:55 O2 Del Method Room Air 10/18/24 16:46 O2 Flow Rate 8 10/18/24 14:15 Pain Score (VAS): 0/10 I/O: Intake & Output 10/18/24 10/19/24 10/19/24 23:59 07:59 15:59 Intake Total 683.3 740 Output Total 1675 1050 Balance -991.7 -310 Laboratory Tests 10/19/24 04:12 10/18/24 10/19/24 09:30 04:12 WBC 16.2 H RBC 3.80 L Hgb 11.6 L Hct 35.2 L MCV 92.6 MCH 30.5 MCHC 33.0 RDW 12.3 Plt Count 257 MPV 10.0 Immature Gran % (Auto) 0.3 Neut % (Auto) 83.8 H Lymph % (Auto) 9.3 L [place] % (Auto) 6.5 Eos % (Auto) 0.0 Baso % (Auto) 0.1 L Lymph # (Auto) 1.50 [place] # (Auto) 1.1 H Eos # (Auto) 0.0 Baso # (Auto) 0.0 Abs Immat Gran (auto) 0.05 H Absolute Neuts (auto) 13.6 H Absolute Nucleated RBC 0.000 Nucleated RBC % 0.0 POC Urine HCG, Qual Negative Post-procedural complaints: none Patient Feedback: Patient satisfied with anesthetic care.
--- NOTE | 2024-10-19 11:58 | P.PNOB_ITS ---
DIRECTOR OF GUIDANCE - A/P Assessment and plan (1) BRCA1 gene mutation positive in female: Code(s): Z15.01 - Genetic susceptibility to malignant neoplasm of breast; Z15.02 - Genetic susceptibility to malignant neoplasm of ovary; Z15.09 - Genetic susceptibility to other malignant neoplasm Status: Acute Assessment and Plan: A: POD#1, doing well. Voiding without difficulty. P: Home to f/u office 2 weeks. (2) STU (stress urinary incontinence, female): Code(s): N39.3 - Stress incontinence (female) (male) Status: Acute Postoperative Procedures: Procedures Operation Date: 10/18/24 11:00 Actual Procedure Side Surgeon p Robotic Assisted Total Vaginal Hysterectomy with Bilateral Salpingo- oophorectomy, Bilateral Girish Deras MD s Cystoscopy for DIRECTOR OF GUIDANCE Procedure, Not Applicable Girish Deras MD s Tension Free Vaginal Taping Not Applicable Girish Deras MD Postoperative day: 1 Time Spent With Patient Time with patient: less than 15 minutes DIRECTOR OF GUIDANCE- PN:Subj Post-Op Subjective Date/time seen: 10/19/24 11:58 Interval history: Pain OK. Tolerating diet. Voiding. Would like to go home. Exam 2 Narrative: AVSS I/O OK ABD soft, nontender. Incisions c/d/i. EXT nontender DIRECTOR OF GUIDANCE - PN: Obj Data Vital Signs Vital Signs: Vital Signs - 24 hr 10/18/24 13:53 10/18/24 14:00 10/18/24 14:15 Temperature 36.4 C L Pulse Rate 86 86 68 Respiratory Rate 14 18 12 Blood Pressure 95/65 L 111/61 111/64 Pulse Oximetry 100 100 100 Oxygen Delivery Simple Face Mask Simple Face Mask Simple Face Mask Oxygen Flow Rate 8 8 8 10/18/24 14:30 10/18/24 14:45 10/18/24 15:00 Temperature Pulse Rate 71 69 85 Respiratory Rate 14 14 12 Blood Pressure 119/70 119/61 110/62 Pulse Oximetry 98 100 100 Oxygen Delivery Room Air Room Air Room Air Oxygen Flow Rate 10/18/24 15:15 10/18/24 15:30 10/18/24 15:45 Temperature Pulse Rate 73 97 84 Respiratory Rate 14 20 20 Blood Pressure 112/57 L 111/73 113/64 Pulse Oximetry 100 100 98 Oxygen Delivery Room Air Room Air Room Air Oxygen Flow Rate 10/18/24 16:46 10/18/24 16:46 10/18/24 19:40 Temperature 37.2 C 36.6 C Pulse Rate 77 71 Respiratory Rate 16 18 Blood Pressure 111/70 117/54 L Pulse Oximetry 100 97 Oxygen Delivery Room Air Oxygen Flow Rate 10/18/24 23:59 10/19/24 00:47 10/19/24 04:23 Temperature 36.6 C 36.5 C Pulse Rate 60 54 L Respiratory Rate 18 17 Blood Pressure 106/43 L 92/55 L 104/51 L Pulse Oximetry 99 98 Oxygen Delivery Oxygen Flow Rate 10/19/24 07:55 Temperature 37.3 C Pulse Rate 59 L Respiratory Rate 18 Blood Pressure 94/47 L Pulse Oximetry 100 Oxygen Delivery Oxygen Flow Rate Intake/Output Intake/Output: Intake & Output 10/16/24 10/17/24 10/18/24 10/19/24 23:59 23:59 23:59 23:59 Intake Total 2083.3 740 Output Total 1875 1050 Balance 208.3 -310 Meds/Results Medications: Active Medications Generic Name Dose Route Start Last Admin Trade Name Freq PRN Reason Stop Dose Admin Acetaminophen 1,000 mg 10/18/24 18:00 10/19/24 07:04 Acetaminophen 500 Mg Tablet PO 1,000 mg Q6HR EBONY Administration Docusate Sodium 100 mg 10/18/24 17:00 10/19/24 07:04 Docusate Sodium 100 Mg Capsule PO 100 mg BID EBONY Administration Enoxaparin Sodium 40 mg 10/18/24 19:00 10/18/24 18:28 Enoxaparin 40 Mg/0.4 Ml Syringe SUB-Q 40 mg Q24H EBONY Administration Estradiol 0.05 mg 10/18/24 09:00 10/18/24 16:40 Estradiol 7 Day 0.05 Mg Patch TRANSDERM 0.05 mg WEEKLY EBONY Administration Dextrose/Sodium Chloride 1,000 mls @ 125 mls/hr 10/18/24 13:50 10/18/24 22:02 Dextrose 5% Sodium Chloride 0.45% IV CONT 125 mls/hr .Q8H EBONY Administration Ibuprofen 600 mg 10/19/24 12:00 Ibuprofen 600 Mg Tablet PO Q6HR EBONY Morphine Sulfate 4 mg 10/18/24 13:49 Morphine Sulfate (*Crx) 4 Mg/Ml Inj IV PUSH Q4H PRN Breakthrough Pain Rated 7-10 or NPO Naloxone HCl 0.1 mg 10/18/24 13:49 Naloxone Hcl 0.4 Mg/Ml Vial IV PUSH Q2M PRN Respiratory rate less than 10 Ondansetron HCl 4 mg 10/18/24 13:49 10/18/24 18:28 Ondansetron Inj 4 Mg/2 Ml Vial IV PUSH 4 mg Q6H PRN Administration Nausea And Vomiting Oxycodone HCl 5 mg 10/18/24 13:49 10/19/24 11:41 Oxycodone Hcl (*Crx) 5 Mg Tab Ir PO 5 mg Q4H PRN Administration Pain Rated 4-6 Oxycodone HCl 10 mg 10/18/24 13:49 10/18/24 20:43 Oxycodone Hcl (*Crx) 5 Mg Tab Ir PO 10 mg Q6H PRN Administration Pain Rated 7-10 Simethicone 80 mg 10/18/24 17:00 10/19/24 11:47 Simethicone 80 Mg Tab.Chew PO 80 mg TIDWM EBONY Administration Labs 10/19/24 04:12 Labs: Laboratory Results - last 24 hr 10/19/24 04:12 WBC 16.2 H RBC 3.80 L Hgb 11.6 L Hct 35.2 L MCV 92.6 MCH 30.5 MCHC 33.0 RDW 12.3 Plt Count 257 MPV 10.0 Immature Gran % (Auto) 0.3 Neut % (Auto) 83.8 H Lymph % (Auto) 9.3 L [place] % (Auto) 6.5 Eos % (Auto) 0.0 Baso % (Auto) 0.1 L Lymph # (Auto) 1.50 [place] # (Auto) 1.1 H Eos # (Auto) 0.0 Baso # (Auto) 0.0 Abs Immat Gran (auto) 0.05 H Absolute Neuts (auto) 13.6 H Absolute Nucleated RBC 0.000 Nucleated RBC % 0.0
== END 2024-10-19 12:10 | disposition home or self-care (01) ==
LOC: ANHSURGERY 11:43 → ANHOB2 16:23
PROVIDERS: PCP Physician Assistant; Visit Provider Obstetrics & Gynecology
PROC: (CPT 58552; principal; 2024-10-18 11:00)
PROC: 0TJB8ZZ Inspection of Bladder, Via Natural or Artificial Opening Endoscopic (ICD-10-PCS; CPT 52000; 2024-10-18 11:00)
PROC: 0TSD0ZZ Reposition Urethra, Open Approach (ICD-10-PCS; CPT 58552; 2024-10-18 11:00)
DX: Z15.01 Genetic susceptibility to malignant neoplasm of breast (principal); N39.3 Stress incontinence (female) (male); G89.18 Other acute postprocedural pain; F17.290 Nicotine dependence, other tobacco product, uncomplicated; F12.90 Cannabis use, unspecified, uncomplicated; E66.01 Morbid (severe) obesity due to excess calories; Z68.41 Body mass index [BMI] 40.0-44.9, adult; Z15.09 Genetic susceptibility to other malignant neoplasm; Z15.02 Genetic susceptibility to malignant neoplasm of ovary; Z98.890 Other specified postprocedural states; Z97.5 Presence of (intrauterine) contraceptive device
CPT/HCPCS: 58552; 57288; S2900; 36415; 85025; 86850; 86900; 86901; 88307; 99199; A9270; C1771; J0690; J1100; J1171; J1200; J1650; J1885; J2250; J2405; J2704; J3010; J7120